=== PATIENT | female | born 1950 | race Caucasian/White ===

== ENCOUNTER 2017-11-23 08:38 | Emergency (ER) | payer MEDICARE, OTHER ==
[~2017-11-23] VITALS: Ht 162.6 cm; Wt 78.5 kg
[2017-11-23] MEDS ORDERED: TRICOR145 MG PO (08:59)
[2017-11-23] MEDS ORDERED: TIROSINT100 MCG PO (09:00)
[2017-11-23] MEDS ORDERED: PEPCID40 MG PO (09:09)
[2017-11-23] MEDS ORDERED: ZYRTEC10 MG PO (09:09)
[2017-11-23] MEDS ORDERED: DELTASONE20 MG PO (09:09)
== END 2017-11-23 10:10 | disposition home or self-care (01) ==
LOC: ED 08:38
DX: T78.40XA Allergy, unspecified, initial encounter (principal); Z88.2 Allergy status to sulfonamides; Z88.0 Allergy status to penicillin; Z88.8 Allergy status to other drugs, medicaments and biological substances; Z79.899 Other long term (current) drug therapy
CPT/HCPCS: 96372; 99282; J2930

== ENCOUNTER 2019-04-21 06:25 | Day surgery (SDC) | payer MEDICARE, OTHER ==
[~2019-04-21] VITALS: Ht 162.6 cm; Wt 70.3 kg
[~2019-04-21 06:25] MED LIST: DELTASONE20 MG PO; PEPCID40 MG PO; TIROSINT100 MCG PO; TRICOR145 MG PO; ZYRTEC10 MG PO
[2019-04-21] MEDS ORDERED: COZAAR50 MG PO (06:44)
--- NOTE | 2019-04-21 08:28 | NUR ---
04/21/19 08 Lalitha Lau 0872 PT ARRIVED IN PACU SLEEPY WITH NO C/O'S. ABD SOFT. PASSING FLATUS.
--- NOTE | 2019-04-22 15:51 | PATH ---
[facility] [address] [place] [address] Signed SPECIMEN(S): A CECAL BIOPSY SPECIMEN(S): B ASCENDING COLON BIOPSY SPECIMEN(S): C DESCENDING COLON BIOPSY SPECIMEN(S): D RECTUM SPECIMEN SOURCE: A. CECAL BIOPSY B. ASCENDING COLON BIOPSY C. DESCENDING COLON BIOPSY D. RECTUM CLINICAL HISTORY: Diarrhea. MICROSCOPIC DESCRIPTION: Histologic sections of all submitted blocks are examined by light microscopy. These findings, together with the gross examination, support the pathologic diagnosis. FINAL PATHOLOGIC DIAGNOSIS: A. Colon, cecum, biopsy: - Colonic mucosa with no histopathologic abnormality. - Negative for dysplasia or malignancy. B. Colon, ascending, biopsy: - Collagenous colitis, see comment. - Negative for dysplasia or malignancy. C. Colon, descending, biopsy: - Colonic mucosa with no histopathologic abnormality. - Negative for dysplasia or malignancy. D. Rectum, biopsy: - Rectal mucosa with no histopathologic abnormality. - Negative for dysplasia or malignancy. COMMENT: Sections of the ascending colon biopsy demonstrate benign colonic mucosa with patchy increased subepithelial collagen band thickening, mild increased intraepithelial lymphocytes, and a lymphoplasmacytic inflammation within the lamina propria. No activity, crypt architectural distortion, or granulomas are seen. The findings are consistent with collagenous colitis. As part of [facility] Quality Improvement Program, this case was reviewed by another member of our pathology staff. PATIENT NAME: GRACIELA DIEZ PATHOLOGY DATE OF : 50 REPORT #: [id number] PHYSICIAN: JAVID PATHOLOGY PCP: ALEXI GLASER MD REPORT IS CONFIDENTIAL AND NOT TO BE RELEASED WITHOUT AUTHORIZATION [facility] [address] [place], [place] [address] Signed NAL:LJA:cml:[id number] GROSS DESCRIPTION: A. The specimen is received in a formalin filled specimen container labeled "MF, #1". Two jane biopsies are 0.2 and 0.3 cm and entirely submitted in cassette A1. B. The specimen is received in a formalin filled specimen container labeled "MF, #2". A single jane biopsy is 0.4 cm and entirely submitted in cassette B1. C. The specimen is received in a formalin filled specimen container labeled "MF, #3". Four jane biopsies are 0.2-0.3 cm and entirely submitted in cassette C1. D. The specimen is received in a formalin filled specimen container labeled "MF, #4". Two jane biopsies are each 0.3 cm and entirely submitted in cassette D1. GW (under the direct supervision of a pathologist) The Gross Description was prepared using a voice recognition system. The report was reviewed for accuracy; however, sound-alike word errors, addition and/or deletions may occur. If there is any question about this report, please contact Client Services. PERFORMING LABORATORY: The technical component was performed by [facility], [address] [place] [id number] (Hydraulic Jack Mechanic: Leyla Squires MD; CLIA# [id number]). [facility], [address] [place] [id number] (Hydraulic Jack Mechanic: Rayn Chun MD; CLIA# [id number]). Diagnostician: Honey Clancy MD Pathologist Electronically Signed 04/22/2019 Copies: ~ PATIENT NAME: GRACIELA DIEZ PATHOLOGY DATE OF : 50 REPORT #: [id number] PHYSICIAN: JAVID PATHOLOGY PCP: ALEXI GLASER MD REPORT IS CONFIDENTIAL AND NOT TO BE RELEASED WITHOUT AUTHORIZATION
--- NOTE | 2019-04-22 22:02 | OR ---
[facility] [address] [place], [place] [address] Signed DATE OF OPERATION: 04/21/2019 SURGEON: Jasmyne Handley MD PREOPERATIVE DIAGNOSES: 1. Diarrhea. 2. History of "colitis" 10 years ago ([place]). POSTOPERATIVE DIAGNOSES: 1. Sigmoid diverticulosis. 2. Appearance of mild chronic left-sided colitis without acute inflammation. 3. External hemorrhoidal changes. PROCEDURE: Total colonoscopy to cecum with random biopsies. ANESTHESIA: Intravenous sedation, fentanyl 150 mcg, Versed 6 mg. INDICATION: This 69-year-old white woman is a patient of Grace George and has complaints of diarrhea, which she associated with Motrin use. She may have an NSAID related colitis problem. She had blood per rectum and bowel movements between four and six times a day. She withdrew her Motrin and things are somewhat improved. Notably, the patient underwent colonoscopy while in [place] about 10 years ago and was said to have "colitis, but not considered Crohn disease or ulcerative colitis. This may have represented an NSAID related colitis or microscopic colitis or some other type. She is admitted at this time to undergo colonoscopy to better characterize the problem. FINDINGS: External hemorrhoidal changes were noted. She had extensive diverticula of sigmoid and left colon. Passage to that area was challenging. There did appear to be mild chronic inflammation of the left colon, certainly not acute. The cecum was normal. DESCRIPTION OF PROCEDURE: The patient was brought to the endoscopy suite and placed in lateral decubitus position, given intravenous sedation to the point of slurred speech and nystagmus. Digital rectal examination was normal. An Olympus video colonoscope was passed into the rectum and manipulated into the Electronically Signed By: JASMYNE HANDLEY MD 04/22/19 8942 PATIENT NAME: GRACIELA DIEZ OPERATIVE REPORT DATE OF : 50 REPORT #: [id number] PHYSICIAN: JASMYNE HANDLEY MD PCP: GRACE GEORGE MD REPORT IS CONFIDENTIAL AND NOT TO BE RELEASED WITHOUT AUTHORIZATION [facility] [address] [place], [place] [address] Signed sigmoid. Angulation deformity and diverticulosis were considerable. Ultimately, the scope was changed to different scope. Passage of the scope was similarly undertaken and with various manipulations, the scope passed beyond the sigmoid, ultimately to the cecum. The ileocecal valve and appendiceal orifice were normal. There did not appear to be acute colitis. Biopsies were taken of the cecum and withdrawal of scope allowed for right colonic biopsies, left side, sigmoid and rectal biopsies. There was no sign of polyps or cancer. A mild chronic inflammatory change was noted of the colon on the left side dominantly, though this may simply be residual from past colitis. Retroflexed view was essentially normal. Scope was removed. The patient was taken to recovery room in good condition. CONCLUDING DIAGNOSES: 1. Diverticular changes, sigmoid and left colon (extensive). 2. Probable chronic microscopic colitis. Pathology pending. PLAN: Recommend Citrucel one scoop p.o. daily and to avoid Motrin or other NSAIDs. She will return to see us in 4 weeks and we will review her pathology report and her progress. MD JOSE MANUEL Song/DUDLEY /[id number] cc: Grace George MD Copies: ~ Electronically Signed By: JASMYNE HANDLEY MD 04/22/19 2202 PATIENT NAME: GRACIELA DIEZ OPERATIVE REPORT DATE OF : 50 REPORT #: [id number] PHYSICIAN: JASMYNE HANDLEY MD PCP: GRACE GEORGE MD REPORT IS CONFIDENTIAL AND NOT TO BE RELEASED WITHOUT AUTHORIZATION
== END 2019-04-21 09:00 | disposition home or self-care (01) ==
LOC: DS 06:25 → OPS 06:25 → DS 06:45 → OPS 09:00
PROVIDERS: Surgery
PROC: 0DBK8ZX Excision of Ascending Colon, Via Natural or Artificial Opening Endoscopic, Diagnostic (ICD-10-PCS; 2019-04-21)
PROC: 0DBM8ZX Excision of Descending Colon, Via Natural or Artificial Opening Endoscopic, Diagnostic (ICD-10-PCS; 2019-04-21)
PROC: 0DBP8ZX Excision of Rectum, Via Natural or Artificial Opening Endoscopic, Diagnostic (ICD-10-PCS; 2019-04-21)
PROC: 0DBH8ZX Excision of Cecum, Via Natural or Artificial Opening Endoscopic, Diagnostic (ICD-10-PCS; principal; 2019-04-21 06:45)
DX: K52.9 Noninfective gastroenteritis and colitis, unspecified (principal); K57.30 Diverticulosis of large intestine without perforation or abscess without bleeding; K64.4 Residual hemorrhoidal skin tags; E03.9 Hypothyroidism, unspecified; I10 Essential (primary) hypertension; E66.01 Morbid (severe) obesity due to excess calories; Z79.899 Other long term (current) drug therapy; Z87.19 Personal history of other diseases of the digestive system; Z88.2 Allergy status to sulfonamides; Z88.1 Allergy status to other antibiotic agents; Z68.28 Body mass index [BMI] 28.0-28.9, adult
CPT/HCPCS: 88305; 99153; G0500; J0690; J2250; J3010; J7121